=== PATIENT | male | born 1960 | race Caucasian/White ===

== ENCOUNTER 2018-09-05 10:55 | Inpatient (IN) | payer SELFPAY ==
[~2018-09-05] VITALS: Ht 165.1 cm; Wt 69.4 kg
[~2018-09-05 10:55] MED LIST: AMLO10TA80 PO; ASPI-1159 PO; CHLO25TA2 PO; CIPR-213 PO; DOXY100C42 PO; GLIP10TA10 PO; HYDR-4135 PO; LOSA1TAB40 PO; METF-416 PO; TAMS-11 PO
[2018-09-05] MEDS ORDERED: PIPERACILLIN/TAZ 3.375G PREMIX 50 ML IV ONE (18:30)
[2018-09-05] MEDS ORDERED: VANCOMYCIN 1 G PREMIX 200 ML IV ONE (18:30)
[2018-09-05] MEDS ORDERED: SODIUM CHLORIDE 0.9% 1000ML BAG (SEPSIS BOLUS) IV ONE (18:30)
[2018-09-05] MEDS ORDERED: HYDROCODONE/ACETAMINOPHEN 5/325MG TABLET PO ONE (18:30)
[2018-09-05 19:20] LABS: BASOPHILS % 0.5 % (0.0-2.0); EOSINOPHILS % 0.6 % (0.0-5.0); HEMATOCRIT. 29.3 % (42.0-52.0); HEMOGLOBIN. 9.6 g/dL (14.0-18.0); LYMPHOCYTES % 9.5 % (20.0-50.0); MEAN CORPUSCULAR HEMOGLOBIN 29.2 pg (28.0-32.0); MEAN CORPUSCULAR VOLUME 88.7 fL (80.0-94.0); MEAN PLATELET VOLUME 8.9 fl (7.4-10.4); MONOCYTES % 6.6 % (2.0-8.0); NEUTROPHILS % 82.8 % (40.0-76.0); PLATELET 415 x1000/uL (130-400); RED BLOOD CELL COUNT 3.31 mill/uL (4.7-6.1); RED CELL DISTRIBUTION WIDTH 13.6 % (11.6-14.6)
[2018-09-05 19:22] LABS: CHLORIDE 94 mEq/L (98-107)
[2018-09-05 19:25] LABS: PROTHROMBIN TIME 10.2 sec (9.1-11.1)
[2018-09-06 01:08] LABS: CLARITY URINE CLEAR (CLEAR); COLOR URINE YELLOW (YELLOW); KETONES URINE NEGATIVE (NEGATIVE); LEUKOCYTE ESTERASE URINE TRACE (NEGATIVE); NITRITE URINE NEGATIVE (NEGATIVE); OCCULT BLOOD URINE NEGATIVE (NEGATIVE); PH URINE 5.5 (4.5-8.0); PROTEIN URINE NEGATIVE (NEGATIVE); UROBILINOGEN URINE 0.2 E.U./dL (0.2-1.0)
[2018-09-06 10:14] VITALS: BP 146/78
[2018-09-06] MEDS ORDERED: DEXTROSE 50% WATER 50ML SYRINGE IV PRN (10:15)
[2018-09-06 12:00] VITALS: BP_SYST 139; BP_SYST 146; BP_DIAS 78; BP_DIAS 79
[2018-09-06] MEDS ORDERED: PIPERACILLIN/TAZ 3.375G PREMIX 50 ML IV SCH (12:00)
[2018-09-06 12:05] VITALS: BP 135/74
[2018-09-06] MEDS: BLOOD SUGAR DIAGNOSTIC STRIP TEST SCH ×3 (12:40→21:00)
[2018-09-06] MEDS: AMLODIPINE 5MG TABLET PO SCH ×2 (13:49→23:40)
[2018-09-06] MEDS: INSULIN LISPRO 100 UNITS/ML SUBCUT SCH ×3 (13:51→23:47)
[2018-09-06 16:00] VITALS: BP 155/77
[2018-09-06] MEDS ORDERED: VANCOMYCIN 1 G PREMIX 200 ML IV SCH ×2 (18:00→20:00)
[2018-09-06 20:00] VITALS: BP 130/60
[2018-09-06] MEDS: PIPERACILLIN/TAZ 3.375G PREMIX 50 ML IV SCH (23:39)
[2018-09-07] VITALS: BP 130/60
[2018-09-07] MEDS: PIPERACILLIN/TAZ 3.375G PREMIX 50 ML IV SCH ×4 (01:44→20:42)
[2018-09-07 04:00] VITALS: BP 132/76
[2018-09-07] MEDS: BLOOD SUGAR DIAGNOSTIC STRIP TEST SCH ×4 (07:40→21:00)
[2018-09-07 07:50] LABS: BASOPHILS % 0.7 % (0.0-2.0); EOSINOPHILS % 1.3 % (0.0-5.0); HEMATOCRIT. 29.9 % (42.0-52.0); LYMPHOCYTES % 15.1 % (20.0-50.0); MEAN CORPUSCULAR HEMOGLOBIN 29.5 pg (28.0-32.0); MEAN CORPUSCULAR VOLUME 87.8 fL (80.0-94.0); MEAN PLATELET VOLUME 8.4 fl (7.4-10.4); MONOCYTES % 6.6 % (2.0-8.0); NEUTROPHILS % 76.3 % (40.0-76.0); PLATELET 407 x1000/uL (130-400); RED CELL DISTRIBUTION WIDTH 13.7 % (11.6-14.6)
[2018-09-07 08:00] VITALS: BP 149/68
[2018-09-07] MEDS: INSULIN LISPRO 100 UNITS/ML SUBCUT SCH ×4 (08:10→20:57)
[2018-09-07 09:03] LABS: CHLORIDE 98 mEq/L (98-107)
[2018-09-07] MEDS: TAMSULOSIN HCL 0.4MG SR CAPSULE PO SCH (10:18)
[2018-09-07] MEDS: AMLODIPINE 5MG TABLET PO SCH ×2 (10:20→20:44)
[2018-09-07 12:00] VITALS: BP 152/70
[2018-09-07] MEDS: VANCOMYCIN 1 G PREMIX 200 ML IV SCH (13:40)
[2018-09-07 16:00] VITALS: BP 143/65
[2018-09-08 00:34] VITALS: BP 114/60
[2018-09-08] MEDS: PIPERACILLIN/TAZ 3.375G PREMIX 50 ML IV SCH ×4 (02:25→21:17)
[2018-09-08] MEDS: VANCOMYCIN 1 G PREMIX 200 ML IV SCH ×2 (02:25→13:30)
[2018-09-08 04:00] VITALS: BP 114/60
[2018-09-08 06:05] LABS: CHLORIDE 97 mEq/L (98-107)
[2018-09-08 06:13] LABS: BASOPHILS % 0.6 % (0.0-2.0); EOSINOPHILS % 1.3 % (0.0-5.0); HEMATOCRIT. 30.1 % (42.0-52.0); HEMOGLOBIN. 9.9 g/dL (14.0-18.0); LYMPHOCYTES % 13.6 % (20.0-50.0); MEAN CORPUSCULAR HEMOGLOBIN 29.1 pg (28.0-32.0); MEAN CORPUSCULAR VOLUME 88.2 fL (80.0-94.0); MEAN PLATELET VOLUME 8.5 fl (7.4-10.4); MONOCYTES % 6.1 % (2.0-8.0); NEUTROPHILS % 78.4 % (40.0-76.0); PLATELET 388 x1000/uL (130-400); RED BLOOD CELL COUNT 3.41 mill/uL (4.7-6.1); RED CELL DISTRIBUTION WIDTH 13.5 % (11.6-14.6)
[2018-09-08] MEDS: BLOOD SUGAR DIAGNOSTIC STRIP TEST SCH ×4 (07:50→21:10)
[2018-09-08 08:00] VITALS: BP 134/71
[2018-09-08] MEDS: INSULIN LISPRO 100 UNITS/ML SUBCUT SCH ×4 (08:10→21:18)
[2018-09-08 09:52] LABS: *AMPHETAMINES SCREEN URINE NEGATIVE (NEGATIVE); *BARBITURATES SCREEN URINE NEGATIVE (NEGATIVE); *BENZODIAZEPINES SCREEN URINE NEGATIVE (NEGATIVE); CANNABINOID URINE SCREEN NEGATIVE (NEGATIVE); PHENCYCLIDINE URINE SCREEN NEGATIVE (NEGATIVE)
[2018-09-08 09:53] LABS: *COCAINE SCREEN URINE NEGATIVE (NEGATIVE); METHADONE URINE SCREEN NEGATIVE (NEGATIVE); OPIATES URINE SCREEN NEGATIVE (NEGATIVE)
[2018-09-08] MEDS ORDERED: BUPIVACAINE HCL/PF 0.5% (5MG/ML) 10ML ONE (14:58)
[2018-09-08] MEDS ORDERED: GENTAMICIN SULF 40MG/ML 2ML VIAL ONE (14:58)
[2018-09-08] MEDS ORDERED: LIDOCAINE HCL 1% 20ML VIAL (Pyxis) INJ ONE (14:58)
[2018-09-08] MEDS ORDERED: NORMAL SALINE 0.9% 10 ML SYR ONE ×2 (14:59→15:08)
[2018-09-08] MEDS ORDERED: BACITRACIN 50,000 UNITS/VIAL ONE ×2 (14:59→15:08)
[2018-09-08] MEDS ORDERED: FENTANYL CITRATE/PF 50MCG/ML 2ML VIAL ONE (15:09)
[2018-09-08] MEDS ORDERED: MIDAZOLAM HCL 2 MG/2 ML VIAL ONE (15:09)
[2018-09-08] MEDS ORDERED: DIPHENHYDRAMINE 50MG/ML VIAL ONE (15:10)
[2018-09-08] MEDS ORDERED: PROPOFOL 200MG/20ML VIAL IV ONE (15:10)
[2018-09-08] MEDS ORDERED: LIDOCAINE HCL/PF 1% 10 MG/ML 5ML VIAL ONE (15:10)
[2018-09-08] MEDS ORDERED: LABETALOL HCL 5MG/ML VIAL 20ML IV ONE (15:58)
[2018-09-08 16:00] VITALS: BP 161/92
[2018-09-08] MEDS: TAMSULOSIN HCL 0.4MG SR CAPSULE PO SCH (18:32)
[2018-09-08] MEDS: AMLODIPINE 5MG TABLET PO SCH ×2 (18:32→21:00)
[2018-09-08 19:50] VITALS: BP 170/82
[2018-09-08] MEDS ORDERED: CLONIDINE 0.1MG TABLET PO PRN (21:15)
[2018-09-09 00:10] VITALS: BP 129/65
[2018-09-09] MEDS: VANCOMYCIN 1 G PREMIX 200 ML IV SCH ×2 (01:47→12:50)
[2018-09-09] MEDS: PIPERACILLIN/TAZ 3.375G PREMIX 50 ML IV SCH ×3 (04:12→13:17)
[2018-09-09 04:23] VITALS: BP 148/77
[2018-09-09] MEDS: ACETAMINOPHEN 325MG TABLET PO PRN ×2 (04:34→09:38)
[2018-09-09 05:54] LABS: BASOPHILS % 0.7 % (0.0-2.0); EOSINOPHILS % 0.7 % (0.0-5.0); HEMOGLOBIN. 9.4 g/dL (14.0-18.0); LYMPHOCYTES % 12.2 % (20.0-50.0); MEAN CORPUSCULAR HEMOGLOBIN 29.4 pg (28.0-32.0); MEAN CORPUSCULAR VOLUME 88.2 fL (80.0-94.0); MEAN PLATELET VOLUME 8.5 fl (7.4-10.4); MONOCYTES % 6.7 % (2.0-8.0); NEUTROPHILS % 79.7 % (40.0-76.0); PLATELET 375 x1000/uL (130-400); RED BLOOD CELL COUNT 3.18 mill/uL (4.7-6.1); RED CELL DISTRIBUTION WIDTH 13.9 % (11.6-14.6)
[2018-09-09 06:34] LABS: CHLORIDE 98 mEq/L (98-107)
[2018-09-09] MEDS: BLOOD SUGAR DIAGNOSTIC STRIP TEST SCH ×2 (06:44→12:48)
[2018-09-09 08:21] VITALS: BP 133/62
[2018-09-09] MEDS: AMLODIPINE 5MG TABLET PO SCH (09:33)
[2018-09-09] MEDS: TAMSULOSIN HCL 0.4MG SR CAPSULE PO SCH (09:33)
[2018-09-09] MEDS: INSULIN LISPRO 100 UNITS/ML SUBCUT SCH ×2 (09:34→13:17)
[2018-09-09 12:00] VITALS: BP 150/71
[2018-09-09] MEDS ORDERED: INSULIN LISPRO 100 UNITS/ML SUBCUT SCH (12:40)
[2018-09-09 15:45] VITALS: BP 134/68
[2018-09-09 16:27] VITALS: BP 134/68
== END 2018-09-09 18:46 | disposition home or self-care (01) | DRG 710 ==
LOC: ER 11:29 → 7WST 18:38 → ENRESERV 09-06 07:36
PROVIDERS: ADMIT Internal Medicine; ATTEND Internal Medicine
PROC: 0Y6N0ZF Detachment at Left Foot, Partial 5th Ray, Open Approach (ICD-10-PCS; principal; 2018-09-08 15:00)
DX: A41.9 Sepsis, unspecified organism (principal); N17.0 Acute kidney failure with tubular necrosis; E43 Unspecified severe protein-calorie malnutrition; E11.621 Type 2 diabetes mellitus with foot ulcer; E87.8 Other disorders of electrolyte and fluid balance, not elsewhere classified; I96 Gangrene, not elsewhere classified; E11.52 Type 2 diabetes mellitus with diabetic peripheral angiopathy with gangrene; D64.9 Anemia, unspecified; E11.65 Type 2 diabetes mellitus with hyperglycemia; E87.1 Hypo-osmolality and hyponatremia; I10 Essential (primary) hypertension; L97.529 Non-pressure chronic ulcer of other part of left foot with unspecified severity; Z79.82 Long term (current) use of aspirin; Z79.84 Long term (current) use of oral hypoglycemic drugs; Z79.899 Other long term (current) drug therapy; Z68.25 Body mass index [BMI] 25.0-25.9, adult
CPT/HCPCS: 36415; 71045; 73630; 80048; 80202; 80305; 82962; 83036; 83605; 84145; 85651; 86140; 87070; 87075; 87077; 87186; 88305; 88311; 93005; 93923; 93970; 96361; 96365; 99291; A4216; J1200; J1580; J1815; J2250; J2543; J2704; J3010; J3370; J3490; J7030; J7040